=== PATIENT | male | born 2000 | race Caucasian/White ===

== ENCOUNTER 2020-09-13 13:55 | Outpatient (REF) | payer OTHER, BC, SELFPAY | END 2020-09-13 13:56 | disposition home or self-care (01) | LOC: HO.LAB 13:55 | PROVIDERS: Visit Provider Internal Medicine | DX: Z20.828 Contact with and (suspected) exposure to other viral communicable diseases (principal) | CPT/HCPCS: C9803; U0003 ==

== ENCOUNTER 2021-02-22 16:08 | Outpatient (REF) | payer OTHER, SELFPAY ==
[2021-02-22 17:14] LABS: Influenza A PCR NEGATIVE (Negative); Influenza B PCR NEGATIVE (Negative); Resp Syncy Virus RNA Qual PCR NEGATIVE (Negative); SARS COV2 PCR INHOUSE NEGATIVE (Negative)
== END 2021-02-22 16:09 | disposition home or self-care (01) ==
LOC: HO.LAB 16:08
PROVIDERS: Visit Provider Physician Assistant
DX: Z20.822 Contact with and (suspected) exposure to COVID-19 (principal); J06.9 Acute upper respiratory infection, unspecified
CPT/HCPCS: 0241U; 36415

== ENCOUNTER 2023-03-28 19:13 | Emergency (ER) | payer OTHER, SELFPAY ==
[2023-03-28] VITALS (10 sets, daily range): BP systolic 136–192; BP diastolic 63–94; PULSE 85–116; RESP 16–20; TEMP 36.6–37.1; O2SAT 96–98; BMI 25.8
--- NOTE | ~2023-03-28 | XR_ITS ---
EXAMINATION: XR ANKLE, RIGHT CLINICAL INFORMATION: Post reduction, second attempt COMPARISON: 9:04 PM TECHNIQUE: 2 views of the right ankle. FINDINGS: There is significantly better alignment at this time. The ankle joint has now been reduced and no longer dislocated. Fibular diaphyseal fracture is now very well aligned. The posterior malleolar fracture and the lateral malleolus fracture are again noted. The medial clear space is prominent at 4 mm but not increased. XR/XR ankle RT 2V IMPRESSION: Successful reduction of ankle dislocation with improved alignment of the fibular fracture. Lateral and posterior malleolar fractures as described above.
--- NOTE | ~2023-03-28 | XR_ITS ---
EXAMINATION: XR ANKLE, RIGHT CLINICAL INFORMATION: Post reduction COMPARISON: Tib-fib radiographs earlier today TECHNIQUE: AP, lateral, and mortise views of the right ankle. FINDINGS: Tibiotalar joint is still dislocated with posterior displacement of the talus with respect to the tibia again seen is a minimally displaced fracture of the medial malleolus along with a fibular diaphyseal fracture with lateral and anterior angulation of the distal fracture fragment minimally improved when compared to the post reduction imaging. Displaced fracture of the posterior malleolus can also be appreciated on the lateral radiograph XR/XR ankle RT 2V IMPRESSION: 1. Tibiotalar joint is still dislocated 2. Minimally improved angulation of the fibular diaphyseal fracture 3. Probable posterior malleolar fracture.
--- NOTE | ~2023-03-28 | XR_ITS ---
EXAMINATION: 1. Right leg. 2. Right foot. CLINICAL INFORMATION: Fall. Pain. COMPARISON: None. TECHNIQUE: 1. Right leg. 2 views 2. Right foot. 2 views FINDINGS: 1. Right leg. There is a transverse displaced angulated fracture of the distal fibular shaft proximal to the synchondrosis. Dorsal angulation of the distal fracture fragment. No fracture of the mid or proximal shaft of tibia or fibula. Knee joint are unremarkable. 2. Right foot. Dislocation of the ankle. The talus is dislocated posterior to the tibia. There is possible small chip fracture at the posterior ankle may be due to chip fracture of the posterior malleolus of the tibia. Osseous density though may be an ossicle. This can be further assessed with CT. No additional fracture of the foot. XR/XR foot RT 2V IMPRESSION: 1. Right leg. Fracture of the distal fibular shaft proximal to the synchondrosis. 2. Right foot. Dislocation of the ankle joint with question of chip fracture of the posterior malleolus of the tibia.
--- NOTE | ~2023-03-28 | XR_ITS ---
EXAMINATION: 1. Right leg. 2. Right foot. CLINICAL INFORMATION: Fall. Pain. COMPARISON: None. TECHNIQUE: 1. Right leg. 2 views 2. Right foot. 2 views FINDINGS: 1. Right leg. There is a transverse displaced angulated fracture of the distal fibular shaft proximal to the synchondrosis. Dorsal angulation of the distal fracture fragment. No fracture of the mid or proximal shaft of tibia or fibula. Knee joint are unremarkable. 2. Right foot. Dislocation of the ankle. The talus is dislocated posterior to the tibia. There is possible small chip fracture at the posterior ankle may be due to chip fracture of the posterior malleolus of the tibia. Osseous density though may be an ossicle. This can be further assessed with CT. No additional fracture of the foot. XR/XR tibia fibula RT 2V IMPRESSION: 1. Right leg. Fracture of the distal fibular shaft proximal to the synchondrosis. 2. Right foot. Dislocation of the ankle joint with question of chip fracture of the posterior malleolus of the tibia.
--- NOTE | 2023-03-28 19:17 | ED.FALL ---
HPI - Fall General Chief Complaint: Extremity Injury, Lower Stated Complaint: fell right foot inj Time Seen by Provider: 03/28/23 19:32 Source: patient Mode of arrival: ambulatory Limitations: no limitations History of Present Illness HPI Narrative: 22-year-old male presents to the emergency department for evaluation of right lower extremity pain particularly around the ankle and foot, patient reports he was skateboarding, hyperflexes foot while he fell. Reports he cannot move his right ankle or toes. Tells me he is able to feel however his right lower extremity is to throbbing. When he fell he did not hit his head or lose consciousness. No other injuries reported. Patient denies headache, vision changes, dizziness, weakness, nausea, vomiting, abdominal pain, chest pain, shortness of breath. Related Data Previous Rx's Medication Instructions Recorded clonazepam 0.25 mg disintegrating 0.25 mg PO .PRN #5 tabs 02/22/21 tablet fluoxetine 40 mg capsule 40 mg PO DAILY #30 caps 04/04/21 ketorolac 10 mg tablet 10 mg PO TID PRN pain 5 days #15 03/28/23 tabs morphine 15 mg immediate release 15 mg PO Q6H PRN pain 5 days #10 03/28/23 tablet tabs Allergies Allergy/AdvReac Type Severity Reaction Status Date / Time cephalexin [From KEFLEX] Allergy Unknown RASH Verified 03/28/23 19:22 Review of Systems Review of Systems: Constitutional : No Weight loss, No Fever, No Chills, No Fatigue, No Malaise ENT/Mouth : No sore throat, No Rhinorrhea Eyes: No Eye Pain, No Swelling, No Redness Cardiovascular : No Chest Pain, No SOB, No Dyspnea on Exertion, No Orthopnea, No Edema, No Palpitations Respiratory : No Cough, No Sputum, No Wheezing Gastrointestinal : No Nausea, No Vomiting, No Diarrhea, No Constipation, No abdominal Pain, No Hematochezia, No Melena Genitourinary : No Dysuria, No Urinary Frequency, No Hematuria, Musculoskeletal : + joint pain, No Myalgias, + Joint Swelling Skin : No Skin Lesions, No rash Neuro : No Weakness, No Numbness, No Dizziness, No Headache Psych : No Anxiety/Panic, No Depression All other systems reviewed and are negative Yes all other systems are reviewed and are negative [facility] Past Medical History Attestation statement: The following information was validated with the patient. Source: old records reviewed and nursing notes reviewed Social History Social History Advance Directives: No Advance Directives Information Provided: No Physical Exam Vital Signs: Vital Signs: Last Vital Signs Temp 98 F 03/28/23 21:52 Pulse 85 03/28/23 22:20 Resp 18 03/28/23 22:20 BP 154/83 H 03/28/23 22:20 Pulse Ox 96 03/28/23 22:20 O2 Del Method Room Air 03/28/23 19:22 BMI result Body Mass Index 25.8 vss Appearance: Alert.? Oriented X3.? No acute distress.? Head: Normocephalic, atraumatic, no step-offs or deformities Eyes: Pupils equal, round and reactive to light.? CVS: Normal heart rate and rhythm.? Pulses normal.? Respiratory: No respiratory distress.? Breath sounds normal.? Abdomen: Soft and nontender.? Skin: Skin warm and dry.? Normal skin color.? Normal skin turgor.? Extremities: No lower extremity edema.? No calf ttp. 5/5 strength to bilateral upper and lower extremities 2+ DP, AT, PT pulses equal and b/l. No foot drop. Cap refil <2 seconds to b/l lower extremity toes. No foot drop. TTP to medial and lateral aspectts of r. ankle and to distal anterior aspect of tibia/fibula. + deformity noted to ankle. Medial mal w/ road rash Normal L. lower extremity. Normal sensation distally. Neuro: Oriented X 3.? No motor deficit.? No sensory deficit. CN 2-12 intact Course Course Course Narrative: This is a rapid medical exam. Deferred additional HPI, ROS, PE to primary provider. 22 yo male with no known medical history here with right ankle pain after skateboarding injury today. Denies hitting head or loc. Patient with +deformity of the right lower extremity. +abrasion over the medial aspect. To go right to room, x-rays and toradol ordered. Does not want narcotic. Tetanus up to date. Reevaluation(s) Reevaluation #1: Spoke to my attending who recommends hematoma block, child hematoma block patient tolerated well however ankle was not reduced. Next step conscious sedation. Time: 21:23 Reevaluation #2: Conscious sedation successfully done with propofol, Dr. Rodgers at the bedside. Patient tolerated procedure well. Prior to procedure a time-out was called, verbal and written consent was obtained in is in patient's chart. No complications with sedation. Post reduction films ordered and appear much better than initial. Palpable pulses after reduction. Patient with normal sensation distally. Placed in a posterior long splint. Plan is to observe and then discharge patient. I did also discuss this case with Dr. Fontenot who recommends posterior long splint, orthopedic follow-up patient will likely require surgery. Time: 22:29 Reevaluation #3: Patient doing well. My attending went in to evaluate patient as well. For discharge with prompt orthopedic follow-up. Educated patient on diagnosis and treatment plan, answered all question, patient verbalizes understanding. At this time patient will be discharged home, advised to return with new or worsening symptoms. Educated on worrisome signs and symptoms and when to return. At this time I feel comfortable discharge home. Time: 23:23 Medications Administered Discontinued Medications Generic Name Dose Route Start Last Admin Trade Name Duranq PRN Reason Stop Dose Admin Ketorolac Tromethamine 30 mg 03/28/23 19:25 03/28/23 20:54 Ketorolac Tromethamine 30 Mg/Ml Vial IM 03/28/23 19:26 Not Given ONCE ONE Ketorolac Tromethamine 30 mg 03/28/23 20:51 03/28/23 20:54 Ketorolac Tromethamine 30 Mg/Ml Vial IVPUSH 03/28/23 20:52 30 mg ONCE ONE Administration Morphine Sulfate 4 mg 03/28/23 20:59 03/28/23 21:03 Morphine Sulfate 4 Mg/Ml Cartridge IVPUSH 03/28/23 21:00 4 mg ONCE ONE Administration Protocol Propofol 100 mg 03/28/23 21:22 03/28/23 21:55 Propofol 200 Mg/20 Ml Vial IVPUSH 03/28/23 21:23 50 mg ONCE ONE Administration Procedures Orthopedic Fracture Reduction Fracture #1: Time Out Performed: Yes Side: right Fracture Reduction Location: fibula Analgesia: procedural sedation Technique: direct manipulation and traction/counter-traction Post Reduction X-rays Demonstrate: acceptable reduction Post-reduction neuro exam: intact Post-reduction vascular exam: intact Splint Applied: Yes Patient Tolerated Procedure: well Orthopedic Joint Reduction Joint #1: Time Out Performed: Yes Side: right Joint Reduction Location: ankle Analgesia: procedural sedation Local Anesthesia: lidocaine 1% Amount of anesthesic used (mL): 10 Technique used: traction/counter-traction Post-reduction neuro exam: intact Post-reduction vascular: intact Post Reduction X-Ray Obtained: Yes Post Reduction X-Ray Results: reduced Splint Applied: Yes Patient Tolerated Procedure: no complications Procedural Sedation Indication: fracture/dislocation reduction ASA Class: I Mallampati Class: I Time of Last PO Intake: 17:00 Preparation: turner splitter machine operator applied, pulse oximeter, capnometry used and supplemental O2 applied IV Propofol dose (mg): 50 Patient Tolerated Procedure: well and no complications Complications: none Medical Decision Making Medical Decision Making MDM Narrative: 22-year-old male presents with right lower extremity pain status post fall off skateboard. Prior to arrival. Physical exam significant for No lower extremity edema.? No calf ttp. 5/5 strength to bilateral upper and lower extremities 2+ DP, AT, PT pulses equal and b/l. No foot drop. Cap refil <2 seconds to b/l lower extremity toes. No foot drop. TTP to medial and lateral aspectts of r. ankle and to distal anterior aspect of tibia/fibula. + deformity noted to ankle. Normal L. lower extremity. Normal sensation distally. Concerns for fracture and dislocation. Unlikely neurovascular compromise or threatened limb. I do not suspect this is a sprain or strain. Will obtain imaging and reach out to ortho. Patient offered narcotic however does not want a necrotic would like Toradol instead. Differential Diagnosis Differential Diagnoses: The differential diagnosis associated with the presentation includes oncerns for fracture and dislocation. Unlikely neurovascular compromise or threatened limb. I do not suspect this is a sprain or strain. Admission/Observation Consideration of admission/observation: Escalation of care including admission/observation considered Independent Interpretation I performed an independent interpretation of an: Plain X-Ray Radiology Impression Discussion of test interpretation with radiology: I have reviewed the radiologist's reading. Prescription Management I considered prescription management with: Pain Medication Core Measures AMI core measures followed: Yes Measure exclusions: not indicated Critical Care Time Critical Care Time Critical Care Time: Yes Total Critical Care Time: 60 Attestation: I attest to this time spent taking care of the patient, obtaining history, physical, reviewing labs, imaging, speaking to my attending, speaking to specialist. Discharge Plan Discharge Clinical Impression: Fracture of distal end of fibula, Ankle dislocation, Fracture of malleolus Patient Disposition: Home, Self-Care Instructions: Ankle Fracture (ED), Crutch Instructions (ED), ORIF of a Leg Fracture (DC), Ankle Dislocation (ED) Additional Instructions: Take your medications as prescribed. If you were prescribed antibiotics today, it is important that you take your medication to their entirety, do not skip any doses, do not finish them early. Follow-up with your primary care provider this week. Call orthopedics tomorrow to schedule an appointment as soon as possible. Return to the emergency department with new or worsening symptoms. Such as fevers, chills, chest pain, shortness of breath, nausea, vomiting, dizziness, headache, vision changes, lethargy In case of emergency call 911 Toradol has been sent to your pharmacy, you tolerated this well in the department. Please take this as prescribed do not take this with ibuprofen, or other NSAIDs, do not mix this with alcohol. Side effects of this medication including increased risk for bleeding and possible kidney injury. A narcotic has been sent to your pharmacy please take this as prescribed. Do not take more than the prescribed dose. Narcotic medications can cause addiction. Please do not mix them with alcohol. Do not take them while driving or operating machinery. Do not take them with any other narcotics. Do not share them with friends or family. They can cause constipation. Take them only for severe pain. Return to the emergency department immediately if you experience any signs or symptoms of compartment syndrome including severe swelling, discoloration toe toes, pain out of proportion, inability to feel toes. Or any new or worrisome symptoms XR/XR tibia fibula RT 2V IMPRESSION: 1. Right leg. Fracture of the distal fibular shaft proximal to the synchondrosis. 2. Right foot. Dislocation of the ankle joint with question of chip fracture of the posterior malleolus of the tibia. Prescriptions: New ketorolac 10 mg tablet 10 mg PO TID PRN (Reason: pain) 5 Days Qty: 15 0RF morphine 15 mg tablet 15 mg PO Q6H PRN (Reason: pain) 5 Days Qty: 10 0RF Rx Instructions: Partial Fill upon patient request. No Action fluoxetine 40 mg capsule 40 mg PO DAILY Qty: 30 2RF clonazepam 0.25 mg tablet,disintegrating 0.25 mg PO .PRN Qty: 5 0RF Rx Instructions: To be taken as needed no more than twice daily for acute anxiety attacks. Referrals: [facility] [Provider Group] - 2 days Physician,Unknown J [Primary Care Provider] - 2 days Stand Alone Forms: Work/School Release
[2023-03-28] MEDS: Ketorolac Tromethamine 30 MG/ML VIAL IVPUSH (20:54)
[2023-03-28] MEDS: Morphine Sulfate 4 MG/ML CARTRIDGE IVPUSH (21:03)
--- NOTE | 2023-03-28 21:45 | PC.NURSE ---
Cecelia at bedside to consent for reduction
[2023-03-28] MEDS: propofoL 200 MG/20 ML VIAL 100 MG IVPUSH (21:55)
--- NOTE | 2023-03-28 22:35 | PC.NURSE ---
pt given girish katy and crackers
== END 2023-03-28 23:48 | disposition home or self-care (01) ==
PROVIDERS: Emergency Provider Emergency Medicine Emergency Medical Services
DX: S82.831A Other fracture of upper and lower end of right fibula, initial encounter for closed fracture (principal); S93.04XA Dislocation of right ankle joint, initial encounter; S82.891A Other fracture of right lower leg, initial encounter for closed fracture; M79.604 Pain in right leg; W18.30XA Fall on same level, unspecified, initial encounter; Y93.9 Activity, unspecified; Y92.480 Sidewalk as the place of occurrence of the external cause; Y99.9 Unspecified external cause status; Z79.899 Other long term (current) drug therapy
CPT/HCPCS: 29515; 73590; 73600; 73620; 96372; 96374; 96375; 99284; 99285; J1885; J2270

== ENCOUNTER 2023-03-29 11:05 | Outpatient (REF) | payer OTHER, SELFPAY ==
--- NOTE | ~2023-03-29 | XR_ITS ---
EXAMINATION: XR ANKLE, RIGHT CLINICAL INFORMATION: Reason for Exam M25.571 - Pain in right ankle and joints of right foot COMPARISON: Ankle radiographs 03/28/2023 TECHNIQUE: Three views of the ankle XR/XR ankle RT min 3V FINDINGS/IMPRESSION: Obliquely oriented fracture of the distal tibial diaphysis minimally increased in degree of displacement with respect to prior. Again seen is a mildly displaced posterior malleolus fracture, a nondisplaced medial malleolus fracture and an osseous fragment anterior to the tibiotalar joint of uncertain donor site. Mild widening of the medial clear space to 7 mm possibly minimally increased from prior. Soft tissue swelling about the ankle.
== END 2023-03-29 11:06 | disposition home or self-care (01) ==
LOC: HO.HOSX 11:05
PROVIDERS: PCP Internal Medicine; Visit Provider Physician Assistant
DX: S82.831A Other fracture of upper and lower end of right fibula, initial encounter for closed fracture (principal); S93.04XA Dislocation of right ankle joint, initial encounter; X58.XXXA Exposure to other specified factors, initial encounter; Y93.51 Activity, roller skating (inline) and skateboarding; Y92.830 Public park as the place of occurrence of the external cause; Y99.9 Unspecified external cause status
CPT/HCPCS: 73610

== ENCOUNTER 2023-03-29 16:03 | Outpatient (REF) | payer OTHER, SELFPAY ==
--- NOTE | ~2023-03-29 | CT_ITS ---
EXAMINATION: CT OF THE RIGHT ANKLE WITHOUT CONTRAST INDICATION: S93.06XA - Dislocation of unspecified ankle joint, initial encounter Right ankle fracture. Surgical planning. COMPARISON: Radiographs from the same date. TECHNIQUE: Multidetector volumetric imaging was obtained through the right ankle without contrast material. Multiplanar reformatted images in coronal and sagittal orientations were submitted. This CT examination was performed using dose optimization techniques as appropriate, variously including the following: *Automated exposure control *Adjustment of mA and/or kV according to patient size (this includes techniques or standardized protocols for targeted exams where dose is matched to indication/reason for exam; i.e. extremities or head) *Use of iterative reconstruction technique DLP: 181 mGy-cm FINDINGS: Again seen is a comminuted intra-articular fracture of the tibial plafond with involvement of the medial and posterior malleoli as well as a Marroquin C distal fibular fracture occurring at the distal fibular diaphysis. The dominant fracture at the tibial plafond is coronal in orientation, extending to the posterior malleolus and continuing through the medial malleolus anteromedially. There is slight comminution of the medial malleolus without significant displacement. At the posterior malleolus, the posteromedial fragments near Volkmann's tubercle are comminuted and depressed up to 3 mm with posterior displacement by up to 2 mm. Multiple intra-articular ossific fragments are identified. A cluster of fragments in the anterolateral aspect of the tibiotalar joint line measuring 6 x 4 x 3 mm, in aggregate, interposed between the Chaput's tubercle and the talar dome. Additional fracture fragments within the talocrural joint measure up to 6 mm in diameter, noted both in the anterior and posterior recesses. Slight widening of the talocrural joint line is likely related to the aforementioned loose osseous fragments at the joint. There is slight widening of the medial ankle mortise with punctate particulate fragments along the articular margin of the medial malleolar fracture. Small ankle joint effusion. The Marroquin C distal fibular fracture is transverse/oblique in orientation, occurring 8 cm from the tibiotalar joint line. The distal fibula is otherwise intact. No fractures at the lateral malleolus. There is a small osseous fragment near the anterior tibiofibular ligament which is likely avulsed from the adjacent tibial cortex. Mild widening of the tibiotalar syndesmosis in this region. The tarsal bones appear intact. No appreciable talar or calcaneal fractures. Subtalar and midfoot joints are unremarkable. There is generalized soft tissue swelling at the ankle, most pronounced in the subcutaneous fat medially and laterally. No appreciable tendon subluxation on these images. Tendons are grossly intact. CT/CT ankle RT wo IV con IMPRESSION: 1. Comminuted intra-articular fracture of the tibial plafond with involvement of the medial and posterior malleoli as well as a Marroquin C distal fibular fracture. 2. Multiple intra-articular fracture fragments at the talocrural joint, likely arising from the tibial plafond at Volkmann's tubercle.
== END 2023-03-29 16:04 | disposition home or self-care (01) ==
LOC: HO.CT 16:03
PROVIDERS: Visit Provider Physician Assistant
DX: S82.831A Other fracture of upper and lower end of right fibula, initial encounter for closed fracture (principal); S93.04XS Dislocation of right ankle joint, sequela; X58.XXXA Exposure to other specified factors, initial encounter; Y93.9 Activity, unspecified; Y92.9 Unspecified place or not applicable; Y99.9 Unspecified external cause status
CPT/HCPCS: 73700

== ENCOUNTER → 2023-04-03 10:22 | Day surgery (SDC) | payer OTHER, SELFPAY ==
[2023-04-03 10:59] VITALS: BMI 25.8
[2023-04-03 11:01] VITALS: BP 147/88; PULSE 82; RESP 16; TEMP 37.3; O2SAT 98
--- NOTE | 2023-04-03 13:24 | MHC.SHP ---
Pre-Procedural Eval Section A Date of Service: 04/03/23 The patient is an INPATIENT: No Changes since office visit: No Cold of Flu in the past 2 weeks, No New Medical Problems, No Changes in Medication and No Patient answered all questions The History & Physical has been completed within 30 days and I have reviewed it.: Yes Section B Chief Complaint: Dislocation of unspecified ankle joint, initial en Allergies: Allergies Allergy/AdvReac Type Severity Reaction Status Date / Time cephalexin [From KEFLEX] Allergy Severe Hives Verified 04/03/23 10:58 Plan I have reviewed the history and physical and performed a pertinent physical examination on my patient. No changes have occurred unless specified. Time Spent With Patient Time: Total time managing care of this patient today ____ minutes.
--- NOTE | 2023-04-03 13:38 | HO.ANESPROP2 ---
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 Meds Allergies Allergy/AdvReac Type Severity Reaction Status Date / Time cephalexin [From KEFLEX] Allergy Severe Hives Verified 04/03/23 10:58 Exam Exam Date and Time: April 03, 2023 1338 Height,Weight and Vital Signs: Height 5 ft 6 in Weight 72.575 kg Last Vital Signs Temp 99.1 F 04/03/23 11:01 Pulse 82 04/03/23 11:01 Resp 16 04/03/23 11:01 BP 147/88 H 04/03/23 11:01 Pulse Ox 98 04/03/23 11:01 O2 Del Method Room Air 04/03/23 11:01 Airway Mallampati Class: II TM Dist: >3cm Neck ROM: Full Heart: rrr Lungs: cta Assessment and Plan Assessment Anesthesia Assessment: Anesthesia Plan Discussed Final Anesthetic Review Family History of Problems with Anesthesia: No History of Problems with Anesthesia: No NPO: Yes ASA Class: II Final Preanesthetic Review: No Changes in Pt Med Stat, Meds/Allgs Chart Reviewed, Consent Obtained/Reviewed and Anes Risks/Benef Reviewed Patient Risk: Low Procedure Risk: Intermediate Anesthetic Plan Anesthetic Plan: GA, Regional Block and Agree w/ Assess. and Plan Disposition: Standard PACU
--- NOTE | 2023-04-03 14:20 | PC.NURSE ---
Dr. Fontenot at bedside to unwrap right lower leg prior to surgery. Leg present with open areas/blisters on ankle and top of foot. Case to be rescheduled to next week due to this. Leg rewrapped at bedside by MD. Patient aware of plan. New pain medications to be sent to pharmacy by Dr. Fontenot per patients request. Family in waiting room updated by this RN and Dr. Fontenot. IV removed, tolerated well.
== END | disposition home or self-care (01) ==
PROVIDERS: Visit Provider Orthopaedic Surgery
DX: S93.04XA Dislocation of right ankle joint, initial encounter (principal); Z53.8 Procedure and treatment not carried out for other reasons; Z88.1 Allergy status to other antibiotic agents
CPT/HCPCS: J2795

== ENCOUNTER 2023-04-09 09:55 | Day surgery (SDC) | payer OTHER, SELFPAY ==
--- NOTE | 2023-04-08 13:18 | P.CONAN_ITS ---
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 Meds Allergies Allergy/AdvReac Type Severity Reaction Status Date / Time cephalexin [From KEFLEX] Allergy Severe Hives Verified 04/03/23 10:58 Exam Exam Date and Time: April 08, 2023 131 Assessment and Plan Assessment Anesthesia Assessment: Chart Reviewed Final Anesthetic Review Family History of Problems with Anesthesia: No History of Problems with Anesthesia: No Documented by User: Jesse Masters MD 04/09/23 18:10 [facility] Social History Social History (Updated 03/29/23 @ 11:10 by SILVIA Driscoll) Patient Tobacco Use Status: Never used Tobacco Current occupational status: employed 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 and Plan Disposition: Standard PACU
--- NOTE | ~2023-04-09 | FL_ITS ---
EXAMINATION: XR FLUOROSCOPY WITH IMAGES CLINICAL INFORMATION: Right ankle fracture. COMPARISON: None available. TECHNIQUE: Fluoroscopy Supervised By: Dr. Fontenot. Fluoroscopy Time: 0.7 minutes. Cumulative Dose: 2.62 mGy. DAP: 0.0455 Gycm2. Images: 3. FINDINGS: There is a plate and screws transfixing the medial malleolar fracture. There is a button or fastener across the distal tibia and fibula. Partially visualized minimally displaced fracture of the distal fibular shaft. Minimally displaced fracture of the posterior malleolus. Improved ankle mortise alignment. FL/FL guidance in OR IMPRESSION: 1. Fluoroscopy for ORIF of medial malleolar fracture. 2. Minimally displaced posterior malleolus and fibular shaft fracture.
[2023-04-09 10:39] VITALS: BP 144/81; PULSE 77; RESP 18; TEMP 36.7; O2SAT 97; BMI 24.8
[2023-04-09 10:44] VITALS: BMI 24.8
[2023-04-09] MEDS: Lactated Ringers 1,000 ML 100 ML IVCONT (10:46)
--- NOTE | 2023-04-09 12:21 | MHC.SHP ---
Pre-Procedural Eval Section A Date of Service: 04/09/23 The patient is an INPATIENT: No Changes since office visit: No Cold of Flu in the past 2 weeks, No New Medical Problems, No Changes in Medication and No Patient answered all questions The History & Physical has been completed within 30 days and I have reviewed it.: Yes Section B Chief Complaint: Dislocation of unspecified ankle joint Allergies: Allergies Allergy/AdvReac Type Severity Reaction Status Date / Time cephalexin [From KEFLEX] Allergy Severe Hives Verified 04/03/23 10:58 Plan I have reviewed the history and physical and performed a pertinent physical examination on my patient. No changes have occurred unless specified. Time Spent With Patient Time: Total time managing care of this patient today ____ minutes.
[2023-04-09 14:48] VITALS: BP 101/49; PULSE 84; RESP 18; TEMP 36.1; O2SAT 99
[2023-04-09 14:53] VITALS: BP 106/51; PULSE 87; RESP 16; O2SAT 99
--- NOTE | 2023-04-09 14:57 | P.BOP_ITS ---
Brief Operative Note Date of Service: 04/09/23 Pre-op diagnosis: Right medial malleolar fracture/dislocation Post-op diagnosis: same Procedure: ORIF medial malleolus ORIF syndesmosis Implants: Sivakumar 2 hole 1/3 tubular plate and 44mm 3.5 screw with Arthrex ankle syndesmosis tightrope x 2 Surgeon: Attila Fontenot MD Anesthesia: GETA and regional Was an Ornamental Iron Worker Apprentice used for this Procedure?: Yes Ornamental Iron Worker Apprentice: Diana Briseno Estimated blood loss (mL): 20 Tourniquet time (min): 70 IV fluids (mL): 1,000 Pathology: none sent Condition: stable Disposition: PACU
[2023-04-09 14:58] VITALS: BP 102/48; PULSE 79; RESP 14; O2SAT 98
[2023-04-09 15:03] VITALS: BP 115/59; PULSE 85; RESP 16; O2SAT 98
--- NOTE | 2023-04-09 15:04 | W.PM.OPN ---
Operative Note Operative Note Date of Service: 04/09/23 Narrative: Pre-op diagnosis: Right medial malleolar fracture/dislocation Post-op diagnosis: same Procedure: ORIF medial malleolus ORIF syndesmosis Implants: Sivakumar 2 hole 1/3 tubular plate and 44mm 3.5 screw with Arthrex ankle syndesmosis tightrope x 2 Surgeon: Attila Fontenot MD Anesthesia: GETA and regional Was an Garment Manufacturing Supervisor used for this Procedure?: Yes Garment Manufacturing Supervisor: Diana Briseno Estimated blood loss (mL): 20 Tourniquet time (min): 70 IV fluids (mL): 1,000 Pathology: none sent Condition: stable Disposition: PACU Procedure in detail: Patient was brought to the operating room and placed supine on the operative table. All bony prominences were well padded and a time-out was called to identify proper site proper procedure proper surgeon. IV antibiotics per weight were administered. I began by exsanguinating limb is slightly tourniquet to 300 mm Hg. I then made a standard oblique incision over the medial malleolus. Full-thickness flaps were taken down to the tibia and a posterior vertical fracturee was identified. The fracture was identified and cleaned with a combination of curette, rongeur and irrigation. A small lateral incision was made and a large tenaculum was used to provisionally reduce the fracture.A 2 hole [place] plate was applied and a bicortical screw was placed redcuing the fracture using standard AO technique. Biplanar fluoroscopy was used to confirm hardware position and fracture reduction. Once I was satisfied that both of these were acceptable I irrigated copiously and turned my attention to the syndesmosis. two Arthrex tightrope's were placed at the level of the syndesmosis from laterla to medial at a posterior to anterior 20deg inclination. THe syndesmosis was subsequently reduced and the two tightropes tightened. The syndesmosis was tested using external rotation test and was found to be stable. Again biplanar fluoro was used to confim fracture position and syndesmotic stability. I was satisfied with both. I then made an arthrotomy via the lateral incision and irrigated the joint. There was a posterior malleolar thin fragment that was not repairable nad the proximal fibula was not fixed as the ankle was stable. Therefore all instrumentation was removed and copious irrigation was performed. Absorbable suture and luis were used for closure and the patient was placed into sterile dressings and a well-padded posterior splint. Tourniquet was let down and the patient was extubated brought to recovery room in stable condition there were no known complications.
[2023-04-09 15:18] VITALS: BP 114/63; PULSE 58; RESP 14; O2SAT 100
== END 2023-04-09 16:10 | disposition home or self-care (01) ==
PROVIDERS: Visit Provider Orthopaedic Surgery
PROC: (CPT 27829; principal; 2023-04-09 11:50)
DX: S82.51XA Displaced fracture of medial malleolus of right tibia, initial encounter for closed fracture (principal); W18.39XA Other fall on same level, initial encounter; Y93.21 Activity, ice skating; Y92.830 Public park as the place of occurrence of the external cause; Y99.8 Other external cause status; M25.571 Pain in right ankle and joints of right foot; R20.0 Anesthesia of skin; R20.2 Paresthesia of skin; Z88.1 Allergy status to other antibiotic agents; Z87.891 Personal history of nicotine dependence
CPT/HCPCS: 27829; 27766; C1713; J0131; J1100; J1170; J2250; J2405; J2795; J3010

== ENCOUNTER → 2023-04-15 09:51 | Outpatient (BNVA) | payer OTHER, SELFPAY | PROVIDERS: Visit Provider Physician Assistant | DX: S82.891A Other fracture of right lower leg, initial encounter for closed fracture (principal); X58.XXXA Exposure to other specified factors, initial encounter; Y93.9 Activity, unspecified; Y92.9 Unspecified place or not applicable; Y99.9 Unspecified external cause status | CPT/HCPCS: 29405 ==

== ENCOUNTER 2023-04-22 12:43 | Outpatient (REF) | payer OTHER, SELFPAY ==
--- NOTE | ~2023-04-22 | XR_ITS ---
EXAMINATION: XR ANKLE, RIGHT CLINICAL INFORMATION: Right ankle pain. COMPARISON: 04/09/2023 and studies dating back to 03/28/2023. TECHNIQUE: AP, lateral, and mortise views of the right ankle. FINDINGS: There is sideplate and screw fixation seen for posterior and medial malleolar fractures of the right ankle. Ankle mortise appears congruent. There is stable appearance of a minimally displaced fibular fracture junctions of the middle and distal thirds. Fracture line is evident without significant callus formation. Baron are seen about the lateral aspect of the right ankle. XR/XR ankle RT min 3V IMPRESSION: Status post intraoperative repair of medial and posterior malleolar fractures of the right ankle. No change in appearance of oblique fibular fracture.
== END 2023-04-22 12:44 | disposition home or self-care (01) ==
LOC: HO.HOSX 12:43
PROVIDERS: Visit Provider Physician Assistant
DX: S82.831D Other fracture of upper and lower end of right fibula, subsequent encounter for closed fracture with routine healing (principal); S82.891D Other fracture of right lower leg, subsequent encounter for closed fracture with routine healing
CPT/HCPCS: 29405; 73610

== ENCOUNTER 2023-05-02 09:13 | Outpatient (REF) | payer OTHER, SELFPAY ==
--- NOTE | ~2023-05-02 | XR_ITS ---
EXAMINATION: XR ANKLE, RIGHT CLINICAL INFORMATION: Pain. COMPARISON: Radiographs dated 04/22/2023. TECHNIQUE: AP, lateral, and mortise views of the right ankle. FINDINGS: Bony mineralization is normal. The ankle mortise is congruent and mildly widened, in particular medially. A fixator plate and fixator screw are applied to the posteromedial tibial plafond. Syndesmotic tight rope hardware is noted. A mildly displaced oblique fracture is seen of the distal right fibular shaft. There is no right ankle joint effusion. Question loose bodies within the anterior joint space. Boehler's angle is normal. There is no calcaneal spur. No focal soft tissue swelling, gas or foreign body is seen. XR/XR ankle RT min 3V IMPRESSION: 1. There is intact orthopedic hardware status-post repair of medial and posterior malleoli fractures. 2. There is stable mild displacement of an oblique fracture of the distal right fibular shaft. There is only slight callus formation. 3. Loose bodies are seen within the anterior joint space. 4. The ankle mortise is congruent but mildly widened, in particular medially.
== END 2023-05-02 09:14 | disposition home or self-care (01) ==
LOC: HO.HOSX 09:13
PROVIDERS: Visit Provider Physician Assistant
DX: S82.831D Other fracture of upper and lower end of right fibula, subsequent encounter for closed fracture with routine healing (principal); S82.891D Other fracture of right lower leg, subsequent encounter for closed fracture with routine healing; W19.XXXD Unspecified fall, subsequent encounter
CPT/HCPCS: 29405; 73610

== ENCOUNTER 2023-05-20 12:08 | Outpatient (REF) | payer OTHER, SELFPAY ==
--- NOTE | ~2023-05-20 | XR_ITS ---
EXAMINATION: XR ANKLE, RIGHT CLINICAL INFORMATION: Pain COMPARISON: 05/02/2023 TECHNIQUE: AP, lateral, and mortise views of the right ankle. FINDINGS: Previous ORIF changes appears intact without evidence for any hardware failure. Distal fibular diaphyseal fracture appears slightly displaced unchanged without significant healing. Ankle mortise appears comparable with slight widening medially. Diffuse soft tissue swelling. Loose bodies versus fracture fragments as seen anteriorly within the anterior joint space. XR/XR ankle RT min 3V IMPRESSION: No significant interval change. No evidence for any hardware failure. Distal fibular fracture again noted without significant healing.
== END 2023-05-20 12:09 | disposition home or self-care (01) ==
LOC: HO.HOSX 12:08
PROVIDERS: Visit Provider Physician Assistant
DX: S82.831D Other fracture of upper and lower end of right fibula, subsequent encounter for closed fracture with routine healing (principal)
CPT/HCPCS: 73610

== ENCOUNTER 2023-05-20 14:20 | Outpatient (AMB) | payer OTHER, SELFPAY ==
[2023-05-20 14:48] VITALS: BMI 25.3
--- NOTE | 2023-05-20 14:48 | MHC.OFFVIS ---
Intake Vital Signs 05/20/23 14:48 Height 5 ft 6 in Weight 157 lb BMI 25.3 Intake Visit Reasons: PO RT Ankle ORIF 04/09/23NE Intake Note: Huseyin is a 23 year old male who presents today for a post operative right ankle ORIF, 04/09/23 NE. Cast removed and rays updated in office. States he has some soreness after having his cast removed. Allergies cephalexin [From KEFLEX] Allergy (Severe, Verified 05/20/23 14:52) Hives HPI PO RT Ankle ORIF 04/09/23NE HPI Details 23-year-old male who returns to the office today for post-op right ankle ORIF, 04/09/[address] Fontenot. He continues to have mild soreness after is cast removal but is doing well otherwise. He has no concerns today. 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 Incision well healed. No erythema or drainage, swelling is minimal. NVI. Results Reviewed Results Reviewed: Xrays were obtained in the office today and personally reviewed by me of the right ankle show stable reduction with orthopedic hardware intact Fibular fracture remains visible, stable Assessment & Plan Assessment & Plan (1) Fracture of distal end of fibula: Code(s): S82.839A - Other fracture of upper and lower end of unspecified fibula, initial encounter for closed fracture (2) Fracture of malleolus: Code(s): S82.899A - Other fracture of unspecified lower leg, initial encounter for closed fracture Plan The patient was transitioned to an off the shelf tall boot weight bearing as tolerated. I did encourage him to begin toe touch weight bearing and then progress 25-50 percent each week until he is full weight bearing since the fibular fracture still does not show significant callous formation. He will see us back in 6 weeks with new x-rays. He will begin a course of physical therapy for ROM, gentle strengthening and proprioceptive training. If he has any concerns, he will contact us sooner, otherwise follow-up as planned. Orders: Orders XR ankle RT min 3V Today M25.571 - Pain in right ankle and joints of right foot PT Evaluation and Treatment Today S82.839A - Other fracture of upper and lower end of unspecified fibula, initial encounter for closed fracture, S82.899A - Other fracture of unspecified lower leg, initial encounter for closed fracture Medications: Discontinued ketorolac 10 mg PO TID 5 days PRN 15 tabs 0RF pain Patient Instructions: Scribed for Diana Briseno PA-C, by Cruz Byrd medical office specialist, on 05/20/2023 at 2:15 PM EST. I, Diana Briseno PA-C, have personally reviewed and agree with the information entered by the scribe. Coding Level of Care Code Global (91405) Diagnoses Fracture of distal end of fibula S82.839A Fracture of malleolus S82.899A
== END 2023-05-20 15:41 | disposition home or self-care (01) ==
PROVIDERS: Visit Provider Physician Assistant
DX: S82.839A Other fracture of upper and lower end of unspecified fibula, initial encounter for closed fracture (principal); S82.899A Other fracture of unspecified lower leg, initial encounter for closed fracture
CPT/HCPCS: 99024

== ENCOUNTER 2023-07-04 07:21 | Outpatient (REF) | payer OTHER, SELFPAY ==
--- NOTE | ~2023-07-04 | XR_ITS ---
EXAMINATION: XR ANKLE, RIGHT CLINICAL INFORMATION: Pain in right ankle and joints of the right foot COMPARISON: 05/20/2023 and previous TECHNIQUE: AP, lateral, and mortise views of the right ankle. FINDINGS: There has been open reduction and internal fixation of a trimalleolar fracture with fusion of the tibiofibular syndesmosis. The hardware appears intact and alignment at the ankle appears near anatomic and unchanged. There is irregularity of the posterior aspect of the tibial epiphysis which is obscured by hardware but appears unchanged. Small ossicles project at the anterior margin of the joint space. The ankle mortise appears intact. There is a healing oblique displaced fracture of the distal shaft of the fibula with evidence of developing callus and bony union. Position and alignment of the fragments is unchanged. No acute abnormality is evident. XR/XR ankle RT min 3V IMPRESSION: Healing fracture of the fibula as described without interval change in alignment. Status post open reduction and internal fixation of the ankle appears stable.
== END 2023-07-04 07:22 | disposition home or self-care (01) ==
LOC: HO.HOSX 07:21
PROVIDERS: Visit Provider Physician Assistant
DX: S82.831D Other fracture of upper and lower end of right fibula, subsequent encounter for closed fracture with routine healing (principal); S82.891D Other fracture of right lower leg, subsequent encounter for closed fracture with routine healing
CPT/HCPCS: 73610

== ENCOUNTER 2023-07-04 13:33 | Outpatient (AMB) | payer OTHER, SELFPAY ==
--- NOTE | 2023-07-04 13:39 | MHC.OFFVIS ---
Intake Vital Signs 07/04/23 13:52 Height 56 ft Weight 157 lb BMI 0.2 Intake Visit Reasons: Postop-RT Ankle ORIF 04/09/23NE with xrays Intake Note: Huseyin a 23 year old male who presents today for a post operative right ankle ORIF, 04/09/23 NE.?Patient reports he is doing well, his pain level is 1 out of 10. He continues to work with PT. Allergies cephalexin [From KEFLEX] Allergy (Severe, Verified 07/04/23 13:55) Hives Penicillins Allergy (Verified 07/04/23 13:55) Hives HPI Postop-RT Ankle ORIF 04/09/23NE with xrays HPI Details 23-year-old male who returns to the office today for post-op right ankle ORIF, 04/09/[address] Fontenot. He states he has minimal pain and rates the pain as 1 on the scale of 0-10. He continues to work with physical therapy as instructed. He is doing well otherwise and has no concerns today. 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 Incision well healed. Swelling has resolved. No tenderness to palpation. NVI. Results Reviewed Results Reviewed: X-rays of the right ankle obtained in the office today show orthopedic hardware intact. Ankle mortis intact. Fibular fracture shows interval healing with callous formation. Assessment & Plan Assessment & Plan (1) Fracture of distal end of fibula: Code(s): S82.839A - Other fracture of upper and lower end of unspecified fibula, initial encounter for closed fracture (2) Fracture of malleolus: Code(s): S82.899A - Other fracture of unspecified lower leg, initial encounter for closed fracture Plan He was transitioned to a lace up ankle brace. He will continue weight bearing as tolerated and increasing activity as tolerated. He will continue to work with physical therapy for gentle strengthening and proprioceptive training. He will remain out of work till I see him back in 6-8 weeks with new x-rays, sooner if needed. Orders: Orders XR ankle RT min 3V Today M25.571 - Pain in right ankle and joints of right foot Medications: Discontinued ketorolac 10 mg PO TID 5 days PRN 15 tabs 0RF pain Patient Instructions: Scribed for Diana Briseno PA-C, by Cruz Byrd, special forces medical sergeant, on 07/04/2023 at 1:30 PM EST. I, Diana Briseno PA-C, have personally reviewed and agree with the information entered by the scribe. Coding Level of Care Code Global (75895) Diagnoses Fracture of distal end of fibula S82.839A Fracture of malleolus S82.899A
== END 2023-07-04 14:23 | disposition home or self-care (01) ==
PROVIDERS: Visit Provider Physician Assistant
DX: S82.839A Other fracture of upper and lower end of unspecified fibula, initial encounter for closed fracture (principal); S82.899A Other fracture of unspecified lower leg, initial encounter for closed fracture
CPT/HCPCS: 99024

== ENCOUNTER 2023-07-25 14:00 | Outpatient (RCR) | payer OTHER, SELFPAY ==
--- NOTE | 2023-05-30 09:01 | MHC.PT.EP ---
[facility] [place] [facility] [place] [facility] [place] [facility] [address] Marti Mcknight [address] [phone] F: [phone] F: [phone] F: [phone] F: [phone] Physical Therapy Plan of Care Date of Evaluation: Date of Surgery: Diagnosis: This is a 23 yo male presenting to skilled PT with a script for right ankle fracture. Assessment: This is a 23 yo male presenting to skilled PT with a script for right ankle fracture. On 04/09/23 patient underwent ORIF medial malleolus, ORIF syndesmosis with [facility] ortho. Original injury was 03/28, he presented to the emergency department for evaluation of right lower extremity pain after a fall skateboarding, his ankle was relocated and was referred to ortho to undergo the ORIF. He recently saw ortho for a follow up on 05/20 where his cast was removed and x-rays were performed. He was transitioned to an off the shelf tall boot and was educated on weight bearing as tolerated. Per note He was encouraged to begin toe touch weight bearing and then progress 25-50 percent each week until he is full weight bearing since the fibular fracture still does not show significant callous formation. He will see us back in 6 weeks with new x-rays. He will begin a course of physical therapy for ROM, gentle strengthening and proprioceptive training. He returns for another follow up on 07/04/23. Today he reports his pain is located at the anterior aspect of lower leg, medial ankle bone and at the heel. Pain is described as achy. Assessment reveals pain that ranges from a 3-7/10. Patient demos decreased ankle ROM, strength of ankle and hip, increased swelling and decreased gait pattern/functional mobility and transfers expected s/p ankle ORIF. Based on functional limitations, impaired QOL and pain tolerance patient is a good candidate for skilled PT 2x/wk for 4wks. Frequency and Duration: The patient will be seen 2x/wk for 5wks Short Term Goals: (in 2 weeks) Patient will demo good understanding of safety, weightbearing precautions and healing times Patient will improve ROM by at least 5 degs Wean from boot when medically cleared by orthopedic and new x-rays performed Accredited Legal Secretary Goals: (in 5 weeks) Patient will demo WFL AROM ankle mobility Patient will normalize gait pattern Patient will improve pain to no more than 2/10 Patient will improve LEFs by at least 10 degs Treatment Plan: Modalities to reduce pain, spasms and effusion. Manual therapy to restore motion and function. Therapeutic exercise to improve strength and flexibility. Neuromuscular re-education for posture and balance. Therapeutic activities to return to functional activities of daily living. Electronically signed by: Bina Loco PT Please sign and return to therapist. Thank you for your referral.
--- NOTE | 2023-08-26 08:49 | MHC.PT.DC ---
[facility] [place] [facility] [place] [facility] [place] Office [address] Marti Mcknight [address] [phone] F: [phone] F: [phone] F: [phone] F: [phone] Physical Therapy Discharge Report Diagnosis: This is a 23 yo male presenting to skilled PT with a script for right ankle fracture. Date of Surgery: Date of Evaluation: 05/29/23 Date of Discharge: 08/26/23 Treatments to Date: 8 Cancellations to Date: 0 No Shows to Date: 0 Discharge Status: Achieved Goals Improved Function Independent with HEP Insurance Declined Tx Discharge Summary: Patient arrives with improved gait pattern at last tx session. He was doing well with HEP. He was introduced to a new set of strengthening HEP, trialed eccentric heel raises (he could only tolerate 3 reps due to weakness) and he was instructed on balance exercises. He was supposed to return to PT in 2 weeks with education on importance of HEP for strengthening gastroc and anterior tib again however patient lost insurance benefits and cancelled appointments. His chart was closed after 30 days as patient did not call to return to PT. Furthermore, last ortho note on 08/22 reports he will be returning back to work in full at the end of this month and no longer needs to follow up with their office. Electronically signed by: Bina Loco PT Please sign and return to therapist. Thank you for your referral.
== END 2023-08-26 08:49 | disposition home or self-care (01) ==
LOC: HO.PTCHIC 14:00
PROVIDERS: PCP Nurse Practitioner Family; Visit Provider Physician Assistant
DX: S82.831D Other fracture of upper and lower end of right fibula, subsequent encounter for closed fracture with routine healing (principal)
CPT/HCPCS: 97110; 97140; 97162

== ENCOUNTER 2023-08-22 11:07 | Outpatient (REF) | payer SELFPAY ==
--- NOTE | ~2023-08-22 | XR_ITS ---
EXAMINATION: XR ANKLE, RIGHT CLINICAL INFORMATION: Right ankle and right foot pain COMPARISON: 07/04/2023 TECHNIQUE: AP, lateral, and mortise views of the right ankle. FINDINGS: Slight increased bony bridging mildly displaced mid/distal fibular fracture with stable ankle hardware positioning and ghost tracks. No medial clear space widening. No focal soft tissue swelling. Calcifications again seen anterior to the ankle joint on lateral view. XR/XR ankle RT min 3V IMPRESSION: Healing mid/distal fibular fracture and stable ankle hardware.
== END 2023-08-22 11:08 | disposition home or self-care (01) ==
LOC: HO.HOSX 11:07
PROVIDERS: Visit Provider Physician Assistant
DX: S82.831D Other fracture of upper and lower end of right fibula, subsequent encounter for closed fracture with routine healing (principal); S82.891D Other fracture of right lower leg, subsequent encounter for closed fracture with routine healing
CPT/HCPCS: 73610

== ENCOUNTER 2023-08-22 13:19 | Outpatient (AMB) | payer OTHER, SELFPAY ==
--- NOTE | 2023-08-22 13:33 | A.OFFVIS_ITS ---
Intake Vital Signs 08/22/23 13:34 Height 5 ft 6 in Weight 157 lb BMI 25.3 Intake Visit Reasons: ov- RT Ankle ORIF 04/09/23NE with xrays Intake Note: Huseyin dyson 23 year old male presents today for a follow up of right ankle ORIF, DOS 04/09/23 NE. Xrays updated in office. Patient reports pain here and there however mostly in the morning. States continuing to work on ROM with PT and at home. He would like to discuss work status. Allergies cephalexin [From KEFLEX] Allergy (Severe, Verified 08/22/23 13:34) Hives Penicillins Allergy (Verified 08/22/23 13:34) Hives HPI ov- RT Ankle ORIF 04/09/23NE with xrays HPI Details 23-year-old male who [facility] follow-up of right ankle ORIF, 04/09/[address] Fontenot. He states he has intermittent pain in the morning. He continues to work on ROM with physical therapy and at home. He would like to discuss his work status. 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 Incision well healed. Swelling has resolved. No tenderness to palpation. NVI. Assessment & Plan Assessment & Plan (1) Fracture of distal end of fibula: Code(s): S82.839A - Other fracture of upper and lower end of unspecified fibula, initial encounter for closed fracture Qualifiers: Encounter type: subsequent encounter Fracture type: closed Fracture morphology: other fracture Laterality: right Fracture healing: with routine healing Qualified Code(s): S82.831D - Other fracture of upper and lower end of right fibula, subsequent encounter for closed fracture with routine healing (2) Fracture of malleolus: Code(s): S82.899A - Other fracture of unspecified lower leg, initial encounter for closed fracture Qualifiers: Encounter type: subsequent encounter Fracture type: closed Laterality: right Fracture healing: with routine healing Qualified Code(s): S82.891D - Other fracture of right lower leg, subsequent encounter for closed fracture with routine healing Plan He will continue to increase activity as tolerated maintaining his ROM and strength. He will return to work on September 26, no restrictions. He will see us back as needed. Orders: Orders XR ankle RT min 3V Today M25.571 - Pain in right ankle and joints of right foot Patient Instructions: Scribed for Diana Briseno PA-C, by Cruz Byrd bilingual medical receptionist, on 08/22/2023 at 1:15 PM KAL. Diana Garvey PA-C, have personally reviewed and agree with the information entered by the scribe. Coding Level of Care Code Est Pt Level 3 (25463) Diagnoses Other closed fracture of distal end of right fibula with routine healing, subsequent encounter S82.831D Encounter type: subsequent encounter Fracture type: closed Fracture morphology: other fracture Laterality: right Fracture healing: with routine healing Closed fracture of malleolus of right ankle with routine healing, subsequent encounter S82.891D Encounter type: subsequent encounter Fracture type: closed Laterality: right Fracture healing: with routine healing
[2023-08-22 13:34] VITALS: BMI 25.3
== END 2023-08-22 13:50 | disposition home or self-care (01) ==
PROVIDERS: PCP Nurse Practitioner Family; Visit Provider Physician Assistant
DX: S82.831D Other fracture of upper and lower end of right fibula, subsequent encounter for closed fracture with routine healing (principal); S82.891D Other fracture of right lower leg, subsequent encounter for closed fracture with routine healing
CPT/HCPCS: 99213